=== PATIENT | male | born 1985 | race Caucasian/White ===

== ENCOUNTER 2019-10-07 13:02 | Emergency (ER) | payer MEDICAID ==
[~2019-10-07] VITALS: Ht 167.6 cm; Wt 85.7 kg
--- NOTE | 2019-10-07 13:15 | NUR ---
Patient to ER bed 5 to gown for evaluation. Side rails up. Report given to Lluvia.
[2019-10-07 13:17] VITALS: BP_SYST 159
--- NOTE | 2019-10-07 13:30 | NUR ---
Patient presents to ER C/O abdominal pain. Patient A&Ox4, ambulatory, afebrile, skin pink and warm, denies diarrhea, Nausea & emesis today, pain 7/10. Patient states had LUQ abdominal pain since 2 days ago. was seen at today and referred to ER after GI cocktail & EKG, denies blood in stool and denies blood in urine per UC. Patient states abdominal pain has been intermittent for several months and he has hx of acid reflux.
--- NOTE | 2019-10-07 13:35 | NUR ---
LORETTA Sánchez at bedside examining patient.
[2019-10-07] MEDS: MAG HYDROX/AL HYDROX/SIMETH 30 ML, DICYCLOMINE HCL 20 MG, LIDOCAINE VISCOUS 2% 15ML (PO... PO ONE ×6 (13:45→14:53)
[2019-10-07] MEDS ORDERED: KETOROLAC TROMETHAMINE 60 MG/2 ML VIAL IM ONE (13:45)
[2019-10-07 14:07] LABS: BASOPHILS % (AUTO) 0.3 % (0.0-2.0); EOSINOPHILS % (AUTO) 0.1 % (0.0-4.0); HEMATOCRIT 41.9 % (36-54); HEMOGLOBIN 14.1 g/dL (14.0-18.0); LYMPHOCYTES # (AUTO) 1.2 K/uL (1.0-5.5); LYMPHOCYTES % (AUTO) 10.8 % (20.5-51.5); MEAN CORPUSCULAR HEMOGLOBIN 30 pg (27-31); MEAN CORPUSCULAR HGB CONC 34 % (32-36); MEAN CORPUSCULAR VOLUME 90 fL (79.0-98.0); MONOCYTES # (AUTO) 0.6 K/uL (0.0-1.0); MONOCYTES % (AUTO) 5.6 % (1.7-9.3); NEUTROPHILS # (AUTO) 9.4 K/uL (1.8-7.7); NEUTROPHILS % (AUTO) 83.2 % (40.0-70.0); PLATELET COUNT (AUTO) 404 K/uL (130-430); RED BLOOD CELL COUNT(AUTO) 4.67 MIL/uL (4.2-6.2); RED CELL DISTRIBUTION WIDTH 13.5 % (9.0-15.0); WHITE BLOOD COUNT (AUTO) 11.3 K/uL (4.8-10.8)
[2019-10-07 14:09] LABS: CALCIUM 8.7 mg/dL (8.4-11.0); CREATININE 1.07 mg/dL (0.55-1.30); POTASSIUM 3.7 mmol/L (3.5-5.1)
[2019-10-07 14:14] LABS: ALBUMIN 4.3 g/dL (3.4-4.8); TOTAL BILIRUBIN 0.3 mg/dL (0.0-1.0)
[2019-10-07 15:25] VITALS: BP_SYST 162
--- NOTE | 2019-10-07 15:25 | NUR ---
Patient given written and verbal discharge instructions and verbalizes understanding. ER MD discussed with patient the results and treatment provided. Patient in stable condition. ID arm band removed. Rx of Creighton & Naproxen given. Patient educated on pain management and to follow up with PMD. Pain Scale 1/10 tolerable for patient. Opportunity for questions provided and answered. Medication side effect fact sheet provided.
== END 2019-10-07 15:25 | disposition home or self-care (01) ==
LOC: SED 13:02
DX: K80.50 Calculus of bile duct without cholangitis or cholecystitis without obstruction (principal); K21.9 Gastro-esophageal reflux disease without esophagitis
CPT/HCPCS: 36415; 76700; 80053; 83690; 85025; 96372; 99284; J1885

== ENCOUNTER 2020-02-17 09:02 | Emergency (ER) | payer MEDICAID, SELFPAY ==
[~2020-02-17] VITALS: Ht 167.6 cm; Wt 87.1 kg
--- NOTE | 2020-02-17 09:10 | NUR ---
BROUGHT BACK TO BED #5 AND TRIAGED. REPORT GIVEN TO RODOLFO
[2020-02-17 09:15] VITALS: BP_SYST 129
--- NOTE | 2020-02-17 09:15 | NUR ---
Pt walked in to ER with c/o fever and cough x3 days. Denies SOB and n/v at this time. V/S stable with a low grade fever. Currently resting in bed, will continue to monitor.
--- NOTE | 2020-02-17 09:20 | NUR ---
ER Dr. Leonard at bedside examining patient.
--- NOTE | 2020-02-17 10:55 | NUR ---
Nasal swab completed for COVID testing, sent to lab
[2020-02-17 10:59] VITALS: BP_SYST 129
--- NOTE | 2020-02-17 11:00 | NUR ---
Patient given written and verbal discharge instructions and verbalizes understanding. ER MD discussed with patient the results and treatment provided. Patient in stable condition. ID arm band removed. Patient educated on pain management and to follow up with PMD. Pain Scale 0. Opportunity for questions provided and answered. Medication side effect fact sheet provided.
== END 2020-02-17 11:00 | disposition home or self-care (01) ==
LOC: SED 09:02
DX: B34.9 Viral infection, unspecified (principal); Z20.828 Contact with and (suspected) exposure to other viral communicable diseases
CPT/HCPCS: 99283; U0003